=== PATIENT | male | born 1930 | race Caucasian/White ===

== ENCOUNTER 2016-12-01 00:06 | Day surgery (SDC) | payer MEDICARE ==
[~2016-12-01] VITALS: Ht 177.8 cm; Wt 77.3 kg
[~2016-12-01 00:06] MED LIST: AMLO2.5T PO; ASCO-294 PO; ASPI-973 PO; ATOR40TA69 PO; BUPR150T12 PO; CARB1DRO18 AFFECT_EYE; CLOP75TA3 PO; ISOS30TA4 PO; LISI-571 PO; METO25TA99 PO; MULT1CAP33 PO; NITR0.4T SL; OMEP20TA86 PO
[2016-12-01] MEDS ORDERED: 0.9% Sodium Chloride 1,000 ML IV PRN (10:13)
[2016-12-01] MEDS ORDERED: Vancomycin Inj 1,000 MG in IV Premix 1 EACH IV ONE (10:15)
[2016-12-01 12:41] LABS: BASOPHILS % (AUTO) 0.3 % (0-3); MONOCYTES % (AUTO) 10.1 % (4-12); Mean Corpuscular Hemoglobin 30.1 pg (27.0-35.0); Mean Corpuscular Volume 89.1 fL (81-100); NEUTROPHILS % (AUTO) 60.6 % (40-74); Platelet Count 212 bil/L (150-400)
[2016-12-01 12:43] VITALS: BP 168/70; PULSE 60; RESP 16; O2SAT 99
[2016-12-01 12:55] LABS: INR 1.06 ratio
--- NOTE | 2016-12-01 13:08 | NUR ---
[facility] ADMIT 86 YR OLD MALE ADMITTED TO [facility] FOR PACEMAKER TODAY AT 1100. PT IS SCHEDULED FOR NEW GENERATOR AND LEAD CHANGE. ASSESSMENT COMPLETED, IVS STARTED, LABS SENT, AND CONSENT IS SIGNED.
[2016-12-01] MEDS ORDERED: Heparin 5,000 Units/500 mL NS Premix IV ONE ×2 (13:50→14:36)
[2016-12-01] MEDS ORDERED: Bupivacaine-MPF 0.5% 30 mL Inj ONE (13:51)
[2016-12-01] MEDS ORDERED: 0.9% Sodium Chloride 250 ML ONE (13:51)
[2016-12-01] MEDS ORDERED: Water for Injection 50 ML IV ONE (13:51)
[2016-12-01] MEDS ORDERED: Vancomycin 1,000 mg Inj ONE (13:51)
[2016-12-01] MEDS ORDERED: fentaNYL-PF 50 mCg/mL 2 mL Inj ONE (13:55)
[2016-12-01 14:42] VITALS: BP 159/81; PULSE 60; RESP 19; O2SAT 98
--- NOTE | 2016-12-01 15:08 | NUR ---
[facility] PT RETURNED FROM [facility] AT 1440. PROCEDURE WAS CANCELED, PT RECEIVED NO SEDATION. PT IS EATING AND WILL DISCHARGE HOME SHORTLY.
--- NOTE | 2016-12-01 15:33 | NUR ---
[facility] DISCHARGE DISCHARGE INSTRUCTIONS INCLUDING F/U AND MEDICATIONS WERE REVIEWED WITH PT AND HE VERBALIZED UNDERSTANDING. DISCHARGED AT 1530 BY SELF.
--- NOTE | 2016-12-03 10:02 | PROCED ---
[address] [address] PROCEDURE NOTE PATIENT: JOE HUERTA : 1930 MR#: [id number] ADMIT: 12/01/2016 JOB ID: [id number] DATE OF SERVICE: 12/01/2016 POSTOPERATIVE DIAGNOSIS(ES): PREOPERATIVE DIAGNOSIS(ES): SURGEON: INDICATIONS: The patient is a pleasant, 86-year-old man, with complete heart block, whose RV pacemaker lead has been showing signs of age with increasing threshold. He was initially slated to come to the catheterization lab for a new RV pacemaker lead placement and generator replacement since he has no less than two years left on his generator. 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 While his threshold was elevated from its baseline, it is still within acceptable range and his impedances have remained solid. He has good functionality with his auto capture threshold on his [employer] device. I decided to follow him closely in the clinic as opposed to proceed with new pacemaker lead placement. He was taken off of the table and discharged home in stable condition.
== END 2016-12-01 23:59 | disposition home or self-care (01) ==
LOC: SOUO 00:06
PROVIDERS: ATTEND Internal Medicine Cardiovascular Disease
DX: T82.110A Breakdown (mechanical) of cardiac electrode, initial encounter (principal); Z53.8 Procedure and treatment not carried out for other reasons; I25.10 Atherosclerotic heart disease of native coronary artery without angina pectoris; I25.5 Ischemic cardiomyopathy; I48.0 Paroxysmal atrial fibrillation; Z95.5 Presence of coronary angioplasty implant and graft; Z79.02 Long term (current) use of antithrombotics/antiplatelets; Z79.82 Long term (current) use of aspirin